=== PATIENT | female | born 1960 | race Caucasian/White ===

== ENCOUNTER 2021-03-13 18:16 | Observation (INO) ==
[2021-03-13] MEDS ORDERED: ASPIRIN 325 MG TABLET PO STA (18:45)
[2021-03-13 19:05] LABS: Basophils % 0.5 % (0.0-0.8); Eosinophils # 0.1 10*3/uL (0.0-0.87); Eosinophils % 1.2 % (0.00-10.9); Hematocrit 38.9 VOL% (35.7-47.0); Hemoglobin 12.7 GM/DL (12.0-16.0); Immature Granulocytes % 0.2 %; Immature Granulocytes Absolute 0.01 #; Lymphocytes # 1.4 10*3/uL (1.4-4.0); Lymphocytes % 24.6 % (21.3-54.2); Mean Corpuscular HGB Conc 32.6 GM/DL (32-36); Mean Corpuscular Volume 90.7 FL (87-102); Mean Platelet Volume 9.8 FL (9.6-12.0); Monocytes % 9.7 % (1.7-12.7); Neutrophils % 63.8 % (38.7-73.9); Platelet Count 207 T/CUMM (130-400); Red Blood Count 4.29 MC/CUMM (3.8-5.5); Red Cell Distribution Width 12.5 % (9.3-17.3); White Blood Count 5.7 T/CUMM (4-12)
[2021-03-13 19:25] LABS: Alanine Aminotransferase 32 U/L (13-56); Alkaline Phosphatase 35 U/L (45-117); Aspartate Amino Transferase 33 U/L (0-37); Bilirubin,Total < 0.39 MG/DL (0.20-1.00); Blood Urea Nitrogen 24 MG/DL (7-18); Calcium 9.2 MG/DL (8.5-10.1); Carbon Dioxide 28 MMOL/L (21-32); Estimated Glom Filtration Rate 87 ML/MIN; Glucose 96 MG/DL (74-106); Osmolality,Calculated 280.5 MOS/KG (273-304); Potassium 4.3 MMOL/L (3.5-5.1); Sodium 139 MMOL/L (136-145); Total Protein 6.7 G/DL (6.4-8.2)
[2021-03-13] MEDS ORDERED: ONDANSETRON 4 MG/2 ML VIAL IV PRN (20:35)
[2021-03-13] MEDS ORDERED: ZALEPLON 5 MG CAPSULE PO PRN (20:35)
[2021-03-13] MEDS ORDERED: CYCLOBENZAPRINE 10 MG TABLET PO PRN (20:40)
[2021-03-13] MEDS ORDERED: traZODone 50 MG TABLET PO SCH (21:00)
[2021-03-13] MEDS ORDERED: ENOXAPARIN 40 MG/0.4 ML SYRINGE SUBCUT SCH (21:00)
[2021-03-13] MEDS: GABAPENTIN 300 MG CAPSULE PO SCH (22:14)
[2021-03-13] MEDS: CALCIUM (CARBONATE)/VITAMIN D 600 MG-400 UNIT TABLET PO SCH (22:14)
[2021-03-13] MEDS: HYDROXYCHLOROQUINE 200 MG TABLET PO SCH (22:45)
[2021-03-13] MEDS: AZELASTINE NASAL 137 MCG/SPRAY 30 ML BOTTLE BOTH NARES SCH (22:46)
[2021-03-14 02:57] LABS: Risk Ratio 1.8; VLDL Cholesterol 13.6 MG/DL
[2021-03-14] MEDS ORDERED: LEVOTHYROXINE 75 MCG TABLET PO SCH (06:30)
[2021-03-14] MEDS ORDERED: MULTIVITAMIN (BEROCCA) TABLET PO SCH (09:00)
[2021-03-14] MEDS ORDERED: FEXOFENADINE 180 MG TABLET PO SCH (09:00)
[2021-03-14] MEDS ORDERED: MONTELUKAST 10 MG TABLET PO SCH (09:00)
[2021-03-14] MEDS: AZELASTINE NASAL 137 MCG/SPRAY 30 ML BOTTLE BOTH NARES SCH (09:56)
[2021-03-14] MEDS: HYDROXYCHLOROQUINE 200 MG TABLET PO SCH (09:57)
[2021-03-14] MEDS: CALCIUM (CARBONATE)/VITAMIN D 600 MG-400 UNIT TABLET PO SCH (09:57)
[2021-03-14] MEDS: GABAPENTIN 300 MG CAPSULE PO SCH (09:58)
[2021-03-14] MEDS ORDERED: METOPROLOL TARTRATE 25 MG TABLET PO SCH (10:30)
[2021-03-14] MEDS ORDERED: ASPIRIN EC 81 MG TABLET PO SCH (11:30)
[2021-03-14 11:44] VITALS: BP 118/72
== END 2021-03-14 15:45 | disposition home or self-care (01) ==
LOC: N.EDINP 18:16 → N.ED 18:16 → SUATTDRO 20:35 → N.TELEN 23:25
PROVIDERS: ADMIT Internal Medicine; ATTEND Internal Medicine